=== PATIENT | male | born 1990 | race Hispanic/Latino ===

== ENCOUNTER → 2020-04-03 | Day surgery (SDC) | payer BC ==
[2020-04-03] VITALS (8 sets, daily range): BP systolic 115–161; BP diastolic 67–100
[~2020-04-03] VITALS: Ht 182.9 cm; Wt 181.4 kg
[~2020-04-03] MED LIST: CHLORTHALIDONE25 MG PO; FENTANYL CITRATE/PF 100MCG/2 ML INJ ONE; HEPARIN SOD (PORCINE) 1000 UNIT/ML 30ML ONE; HEPARIN SOD/SOD CHLORIDE 2,000 ML ONE; IOPAMIDOL 370 MG/ML 200 ML INFUS..BTL INJ ONE; LIDOCAINE HCL 2% LOCAL 20 ML VIAL ONE; LOSARTAN POTAS100 MG PO; METFORMIN HCL500 MG PO; MIDAZOLAM HCL 2 MG/2 ML VIAL ONE; NITROGLYCERIN/D5W 200 MCG/ML 250 ML ONE; PRAVACHOL20 MG PO; SODIUM CHLORIDE 0.9% 1000ML 1,000 ML ONE; TRULICITY1.5 MG/0.5; VERAPAMIL HCL 2.5 MG/ML 2 ML VIAL ONE
--- NOTE | 2020-04-03 10:00 | NUR ---
1000a RADIAL Compression removal: Initial Cuff volume -14 cc 10am -4cc Removed No hematoma/bleeding noted with normal neurovascular function. 1015 -5cc Removed No hematoma/ bleeding noted with normal neurovascular function. 1030 -5cc Removed No hematoma/bleeding noted with normal neurovascular function. c Air removal completed. Stasis achieved sterile 2x2,Tegaderm, Coban dressing No hematoma, bleeding noted with normal neurovascular function. Pt instructed on POC. Ds/Rn
--- NOTE | 2020-04-03 10:00 | NUR ---
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 Bedside report received from [facility]. Identifierx2. Alert oriented and appropriate, PERRLA, respirations even and unlabored to room air. Pulses x4 extremities equal and strong. Pedal pulses PT/DP X4 and marked. Cap fill brisk < 3 sec. Rt TR band site No gross issues pain,pallor,pressure or dysrhythmia. TR band down 1t 10am.Normal neuro vascular issues. Skin warm and dry integrity appears D/I. IV 20g to left ac at 100cc/hr ,presents healthy w/o s/s of infiltration or complaint. Abdomen soft and supple. pt offered toileting, denies need to urinate or defecate. No personal affects with patient. Currently w/o complaint of pain or need. delmy/rn
--- NOTE | 2020-04-03 12:00 | NUR ---
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 Rt TR band assessed for s/s of complication and presence of hematoma. Skin warm, dry, no discolor, and pulses present. IV removed from lt ac, Distal tip appears intact. VS WNL. Pt denies pain, sob, or need at this time. Family at Bs. Review of discharge paperwork and follow up instructions. verbalized understanding. Pt to wheelchair and transported to front of hospital. Transferred to private vehicle under own strength w/o incident with DC paperwork in hand. - delmy/rn ---
--- NOTE | 2020-06-01 16:26 | Operative Report ---
DATE OF PROCEDURE: 04/03/2020 SURGEON: Aniket Nolan MD INDICATIONS FOR PROCEDURE: [id number]. PREPROCEDURE ASSESSMENT: The risks, benefits, and alternatives to treatment were explained to the patient prior to the procedure. The patient deemed to be an appropriate candidate for moderate sedation. Please see informed consent documented in medical record. MEDICATIONS: Please see nursing notes for medications administered throughout the procedure. PROCEDURES PERFORMED: 1. Coronary angiography. 2. Left heart catheterization, right radial approach. 3. Moderate sedation time, 30 minutes. PROCEDURE IN DETAIL: The right wrist was prepped and draped in a sterile fashion. A 6-Gambian Slender sheath was inserted in the right radial artery using modified Seldinger technique. Coronary angiography was performed using a 5-Gambian Katie radial catheter. Left heart catheterization was performed using a pigtail catheter. All catheters were removed over a wire. Multiple orthogonal views were taken of each coronary artery. Access site was closed using a TR band device. There were no immediate complications. SIGNIFICANT FINDINGS: 1. Right dominant coronary system with no significant coronary artery disease. 2. LVEDP 20 mmHg. No gradient across the aortic valve. GRAFTS AND IMPLANTS: None. SPECIMEN REMOVED: None. ESTIMATED BLOOD LOSS: 20 mL. FINAL RECOMMENDATIONS: Continue optimal medical therapy and risk factor control. Aniket Nolan MD KVP/MODL /[id number]
== END | disposition home or self-care (01) ==
LOC: CATH LAB 07:07
PROVIDERS: ATTEND Internal Medicine
DX: I20.8 Other forms of angina pectoris (principal); Z79.84 Long term (current) use of oral hypoglycemic drugs
CPT/HCPCS: 93458; J1644; J2001; J2250; J3010; J7030; Q9967; 99152; 99153